=== PATIENT | male | born 1960 | race Two or more races ===

== ENCOUNTER 2019-11-19 16:33 | Outpatient (CLI) | payer OTHER | END 2019-11-19 17:43 | disposition home or self-care (01) | LOC: OFIC 805 16:33 | PROVIDERS: ATTEND Otolaryngology Otology & Neurotology | DX: H71.92 Unspecified cholesteatoma, left ear (principal); H90.12 Conductive hearing loss, unilateral, left ear, with unrestricted hearing on the contralateral side ==

== ENCOUNTER 2019-11-23 10:57 | Outpatient (CLI) | payer OTHER | END 2019-11-23 11:22 | disposition home or self-care (01) | LOC: TOM 10:57 | PROVIDERS: ATTEND Otolaryngology Otology & Neurotology | DX: H71.92 Unspecified cholesteatoma, left ear (principal) ==